=== PATIENT | male | born 1945 | race Two or more races ===

== ENCOUNTER 2020-08-19 11:48 | Outpatient (CLI) | payer OTHER | END 2020-08-19 13:12 | disposition home or self-care (01) | LOC: EDBD 11:48 → SONOGRAMA 11:48 | PROVIDERS: ATTEND Otolaryngology | DX: E04.1 Nontoxic single thyroid nodule (principal) ==

== ENCOUNTER 2020-09-09 08:21 | Outpatient (CLI) | payer OTHER | END 2020-09-09 08:26 | disposition home or self-care (01) | LOC: SONOGRAMA 08:21 → EDBD 08:21 → SONOGRAMA 08:26 | PROVIDERS: ATTEND Pathology Anatomic Pathology & Clinical Pathology | DX: R22.0 Localized swelling, mass and lump, head (principal) ==